=== PATIENT | female | born 1960 | race African-American/Black ===

== ENCOUNTER 2024-03-21 15:02 | Emergency (ER) | payer MEDICAID ==
[~2024-03-21] VITALS: Ht 167.6 cm; Wt 75.0 kg
[2024-03-21 15:11] VITALS: O2SAT 99
[2024-03-21] MEDS ORDERED: METF-414 MT (16:03)
[2024-03-21] MEDS ORDERED: AMLO5TAB88 MT (16:03)
[2024-03-21 16:25] VITALS: BP 147/66; PULSE 61; RESP 16; TEMP 36.72516; O2SAT 98
== END 2024-03-21 16:20 | disposition home or self-care (01) ==
LOC: ER 15:02
DX: I10 Essential (primary) hypertension (principal); E11.9 Type 2 diabetes mellitus without complications; Z76.0 Encounter for issue of repeat prescription
CPT/HCPCS: 99281; Z7610